=== PATIENT | female | born 1960 | race Caucasian/White ===

== ENCOUNTER 2019-12-28 07:37 | Outpatient (REF) | payer BC, SELFPAY ==
--- NOTE | 2019-12-28 07:42 | MM_ITS ---
EXAMINATION: MM SCREENING DIGITAL BREAST TOMOSYNTHESIS, BILATERAL CLINICAL INFORMATION: Screening. Asymptomatic. The lifetime risk of breast cancer based on the Tyrer-Cuzick Model is 11%. COMPARISON: Mammography: 12/22/2018, 11/09/2017, 10/17/2016 TECHNIQUE: Digital breast tomosynthesis is performed in both the craniocaudal and mediolateral oblique views along with computer-aided detection (CAD). Synthesized 2D images are generated from the tomosynthesis. FINDINGS: There are scattered areas of fibroglandular density (ACR BI-RADS breast composition Category b). There are no significant masses, abnormal calcifications, or other abnormalities. Parenchymal pattern is similar to prior studies. No developing density. The axilla are unremarkable. MM/MM tomosynthesis screening BI IMPRESSION: No significant changes from prior studies. ASSESSMENT: BI-RADS 1: Negative RECOMMENDATION: Routine annual mammography screening. This patient's information was entered into a reminder system with a target due date for their next mammogram.
== END 2019-12-28 07:38 | disposition home or self-care (01) ==
LOC: HO.MAMMO 07:37
PROVIDERS: PCP Pediatrics; Visit Provider Pediatrics
DX: Z12.31 Encounter for screening mammogram for malignant neoplasm of breast (principal)
CPT/HCPCS: 77063; 77067

== ENCOUNTER 2021-02-17 12:04 | Outpatient (REF) | payer OTHER, SELFPAY ==
--- NOTE | ~2021-02-17 | MM_ITS ---
EXAMINATION: MM SCREENING DIGITAL BREAST TOMOSYNTHESIS, BILATERAL CLINICAL INFORMATION: Screening. Asymptomatic. The lifetime risk of breast cancer based on the Tyrer-Cuzick Model is 7%. COMPARISON: Mammography: 12/28/2019, 12/22/2018, 11/09/2017 TECHNIQUE: Digital breast tomosynthesis is performed in both the craniocaudal and mediolateral oblique views along with computer-aided detection (CAD). Synthesized 2D images are generated from the tomosynthesis. FINDINGS: There are scattered areas of fibroglandular density (ACR BI-RADS breast composition Category b). There are no significant masses, abnormal calcifications, or other abnormalities. Bilateral low lying axillary tail nodes are again present. There is a stable small oval nodule central outer right breast. No developing density or architectural abnormality. The skin contours are smooth. No significant changes. MM/MM tomosynthesis screening BI IMPRESSION: No mammographic evidence of malignancy. ASSESSMENT: BI-RADS 2: Benign RECOMMENDATION: Routine annual mammography screening. This patient's information was entered into a reminder system with a target due date for their next mammogram.
== END 2021-02-17 12:05 | disposition home or self-care (01) ==
LOC: HO.MAMMO 12:04
PROVIDERS: Visit Provider Pediatrics
DX: Z12.31 Encounter for screening mammogram for malignant neoplasm of breast (principal)
CPT/HCPCS: 77063; 77067

== ENCOUNTER 2022-02-20 08:22 | Outpatient (REF) | payer OTHER, SELFPAY ==
--- NOTE | ~2022-02-20 | MM_ITS ---
EXAMINATION: MM SCREENING DIGITAL BREAST TOMOSYNTHESIS, BILATERAL CLINICAL INFORMATION: Screening. Asymptomatic. The lifetime risk of breast cancer based on the Tyrer-Cuzick Model is 9%. COMPARISON: Mammography: 02/17/2021, 12/28/2019, 12/22/2018 TECHNIQUE: Digital breast tomosynthesis is performed in both the craniocaudal and mediolateral oblique views along with computer-aided detection (CAD). Synthesized 2D images are generated from the tomosynthesis. FINDINGS: There are scattered areas of fibroglandular density (ACR BI-RADS breast composition Category b). There are no significant masses, abnormal calcifications, or other abnormalities. Parenchymal pattern is similar to prior studies. There is no developing density or architectural abnormality. The axilla and skin contours are unremarkable. No significant changes. MM/MM tomosynthesis screening BI IMPRESSION: No mammographic evidence of malignancy. ASSESSMENT: BI-RADS 1: Negative RECOMMENDATION: Routine annual mammography screening. This patient's information was entered into a reminder system with a target due date for their next mammogram.
== END 2022-02-20 08:23 | disposition home or self-care (01) ==
LOC: HO.MAMMO 08:22
PROVIDERS: PCP Nurse Practitioner Family; Visit Provider Nurse Practitioner Family
DX: Z12.31 Encounter for screening mammogram for malignant neoplasm of breast (principal)
CPT/HCPCS: 77063; 77067

== ENCOUNTER 2023-02-26 08:19 | Outpatient (REF) | payer BC, SELFPAY | END 2023-02-26 08:20 | disposition home or self-care (01) | LOC: HO.MAMMO 08:19 | PROVIDERS: PCP Nurse Practitioner Family; Visit Provider Nurse Practitioner Family | DX: Z12.31 Encounter for screening mammogram for malignant neoplasm of breast (principal) | CPT/HCPCS: 77063; 77067 ==

== ENCOUNTER → 2023-02-26 08:30 | Outpatient (BNV) | payer BC, SELFPAY | PROVIDERS: PCP Nurse Practitioner Family; Visit Provider Radiology Diagnostic Radiology | DX: Z12.31 Encounter for screening mammogram for malignant neoplasm of breast (principal) | CPT/HCPCS: 77063; 77067 ==

== ENCOUNTER 2024-03-17 10:01 | Outpatient (REF) | payer BC, SELFPAY | END 2024-03-17 10:02 | disposition home or self-care (01) | LOC: HO.MAMMO 10:01 | PROVIDERS: PCP Internal Medicine; Visit Provider Nurse Practitioner Family | DX: Z12.31 Encounter for screening mammogram for malignant neoplasm of breast (principal) ==

== ENCOUNTER → 2024-03-17 10:15 | Outpatient (BNV) | payer BC, SELFPAY | PROVIDERS: PCP Internal Medicine; Visit Provider Internal Medicine | DX: Z12.31 Encounter for screening mammogram for malignant neoplasm of breast (principal) | CPT/HCPCS: 77063; 77067 ==

== ENCOUNTER 2024-05-18 10:19 | Outpatient (AMB) | payer BC, SELFPAY ==
--- NOTE | 2024-05-18 10:41 | A.OFFPC_ITS ---
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 Allergies nitrofurantoin Allergy (Verified 05/18/24 10:45) Rash Medication List - Last Reconciled 05/18/24 by EROS Christina bimatoprost 0.01% (Lumigan) 1 drp ophthalmic (eye) DAILY dorzolamide-timolol 22.3-6.8 mg/mL (Cosopt) 1 drp ophthalmic (eye) BID Tobacco use date assessed: 05/18/24 Dental Screening Dental Screen Date: 05/18/24 Did you have a dental visit in the last 12 months?: Yes Did you have a dental problem in the last 6 months where you did not have access to dental care?: No HPI HPI Comments History of Present Illness Details This is a 63-year-old female with a past medical history of hyp othyroidism presenting to establish care. She sees an eye doctor regularly due to glaucoma. She is on drops. She has mammograms done at [facility]. This is up-to-date. History of hypothyroidism-Not currently on meds. She declines referral for gynecologic exam. Bone density exam ordered. She declines colonoscopy. No family history of colon cancer. She has never had a colonoscopy. Agreeable to Cologuard which is ordered. Patient says she is not interested in vaccinations. We discussed them including Prevnar vaccine. She will think about it. She can get it at the pharmacy if she wants to proceed. Patient says cholesterol has been borderline elevated in the past. She has a family history of cardiovascular disease. She denies chest pain, shortness of breath or decreased exercise tolerance. We discussed low-dose CAT scan, and she is going to think about it and check with her insurance company and let me know if she wants me to order it. Patient traveling to [facility] and [facility]. Travel agency said she does not have to get malaria vaccine because it is above the malaria line. ROS: Constitutional: No unexplained weight loss, fever, chills, fatigue or night sweats. Eyes: No vision changes, blurry vision, double vision, eye pain, eye redness, eye discharge. ENT: No hearing loss, sneezing, congestion, runny nose or sore throat. Respiratory: No shortness of breath, cough or sputum production. Cardiovascular: No chest pain, chest pressure or chest discomfort. No palpitations or pedal edema. Gastrointestinal: No anorexia, nausea, vomiting or diarrhea. No abdominal pain or blood in stool. Genitourinary: No dysuria, hematuria, urinary frequency. Neurologic: No headache, dizziness, syncope, unilateral weakness, ataxia, numbness or tingling in the extremities. Musculoskeletal: No muscle pain, back pain, joint pain or swelling. Hematologic/Lymphatics: No bleeding or bruising. No painful lymph nodes. Skin: No rash or itching. Endocrine: No cold or heat intolerance. No polyuria or polydipsia. Psychiatric: No depression or anxiety. No SI/HI. Physical exam: Constitutional: Alert, in no distress. Head: Normocephalic. Eyes: Pupils are equal, round and reactive to light. Extraocular muscles intact. Ear, Nose and Throat: Canals clear. TMs normal. Normal nasal mucosa. No nasal discharge. No oral lesions. Neck: Supple, Full range of motion. No lymphadenopathy. No palpable thyroid masses. Respiratory: Clear to auscultation. Cardiovascular: S1 S2 regular. No murmurs. No carotid bruits. Gastrointestinal: Abdomen soft, non-tender, non-distended. Normal bowel sounds. No palpable masses. Neurologic: No focal neurological deficits. Symmetric patellar reflexes. Moves all extremities spontaneously. Sensation intact bilaterally. Skin: No rashes or lesions. Musculoskeletal: No gross deformities. Normal range of motion. Extremities: Warm and well perfused. No clubbing, cyanosis or edema. 3+ peripheral pulses bilaterally. Psychiatric: Normal mood and affect [facility] Medical History (Updated 05/18/24 @ 13:49 by EROS Christina) Glaucoma Routine physical examination Screening for cardiovascular condition Hypothyroidism Family History (Updated 05/18/24 @ 10:55 by Ada Boyd MA) Father Stroke Maternal Grandmother Breast cancer Brother Cardiovascular disease Other High cholesterol Hypertension Social History (Updated 05/18/24 @ 10:48 by Ada Boyd MA) Housing: House Alcohol intake: current Comment: Social Patient Tobacco Use Status: Never used Tobacco e-Cigarette/Vaping Use: Never Used Second Hand Smoke Exposure: No service: No Current occupational status: employed Current occupational exposures/hazards: No Cognitive needs: No Hearing needs: No Vision needs: No Questionnaire PHQ-9 Over the last 2 weeks, how often have you been bothered by any of the following problems? 1. Little interest or pleasure in doing things: not at all 2. Feeling down, depressed, or hopeless: not at all 3. Trouble falling or staying asleep, or sleeping too much: several days 4. Feeling tired or having little energy: not at all 5. Poor appetite or overeating: not at all 6. Feeling bad about yourself - or that you are a failure or have let yourself or your family down: not at all 7. Trouble concentrating on things, such as reading the newspaper or watching television: not at all 8. Moving or speaking so slowly that other people could have noticed. Or the opposite - being so fidgety or restless that you have been moving around a lot more than usual: not at all 9. Thoughts that you would be better off or of hurting yourself in some way: not at all Total score: 1 Depression Screening Interpretation: Negative Depression Screening Done: Yes 70500 - PHQ-9 Billing: Patient declined-do not bill Source: Developed by Drs. Ernesto Duong, Roopa Feldman, Adolfo Agustin and colleagues, with an educational edilson from [employer]. Thrive Questionnaire Date Thrive assessed: 05/18/24 I am a: Patient What is your living situation today?: I have a steady place to live Within the past 12 months, did the food you bought not last and you didn't have the money to get more?: Never true Within the past 12 months, did you worry whether your food would run out before you got money to buy more?: Never true Do you have trouble paying for medicines?: No Do you have trouble getting transportation to medical appointments?: No Do you have trouble paying your heating and electricity bill?: No Do you have trouble taking care of your child, family member or friend?: No Do you have trouble with day-to-day activities such as bathing, preparing meals, shopping, managing finances, etc.?: No Are you currently unemployed and looking for a job?: No Are you interested in more education?: No Please select the resources that you would like help with: None Currently or been in a relationship where the following occur: No concerns reported THRIVE Score: 0 AUDIT C Alcohol Use Questionnaire (AUDIT-C) 1. How often do you have a drink containing alcohol?: 2-3 times a week 2. How many drinks containing alcohol do you have on a typical day when you are drinking?: 1 or 2 3. How often do you have six or more drinks on one occasion?: Never Total Score: 3 Score Reviewed/Action Taken: No SIMRAN-7 AMB Questionnaire SIMRAN-7 Date SIMRAN - 7 assessed: 05/18/24 Feeling nervous, anxious, or on edge: 0 = Not at all Not being able to stop or control worryin = Not at all Worrying too much about different things: 0 = Not at all Trouble relaxin = Several days Being so restless that it is hard to sit still: 0 = Not at all Becoming easily annoyed or irritable: 0 = Not at all Feeling afraid as if something awful might happen: 0 = Not at all Total SIMRAN-7 score (0-4 normal; 5-9 mild; 10-14 moderate; 15-21 severe): 1 Source: Developed by Drs. Ernesto Duong, Roopa Feldman, Adlofo Agustin and colleagues, with an educational edilson from [employer]. SIMRAN-7 Assessment Billing SIMRAN-7 Assessment Tool: SIMRAN-7 Assessment 80131 Physical exam (Primary Care) Vital Signs: Last Vital Signs Pulse 65 05/18/24 10:49 BP 116/70 05/18/24 10:49 Pulse Ox 98 05/18/24 10:49 Oxygen Delivery Method Room Air 05/18/24 10:49 BMI result Body Mass Index 33.2 Tobacco/Smoking Status: Tobacco use Status Tobacco use date assessed 05/18/24 05/18/24 10:53 Patient Tobacco Use Status Never used Tobacco 05/18/24 10:53 e-Cigarette/Vaping Use Never Used 05/18/24 10:53 PHQ-9: PHQ-9 Score PHQ-9: Total score 1 05/18/24 10:53 Depression Screening Interpretation: Negative Thrive Assessment: Date of Thrive Assessment Date Thrive assessed 05/18/24 05/18/24 10:53 Currently or been in a relationship where the following occur: No concerns reported Coding Level of Care Code New Pt Prev Care 40-64y(88622) Diagnoses Routine physical examination Z00.00 Screening for cardiovascular condition Z13.6 Hypothyroidism E03.9 Additional Codes SIMRAN-7 Assessment Billing - SIMRAN-7 Assessment Tool: SIMRAN-7 Assessment 67179 ([id number]) Assessment & Plan Assessment & Plan (1) Routine physical examination: Code(s): Z00.00 - Encounter for general adult medical examination without abnormal findings Category: Medical Plan: Patient is seen today for a routine physical. 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 - Screening for colon cancer - Blood pressure screening - Cholesterol screening - Osteoporosis prevention including calcium/vitamin D intake, weight bearing exercise & smoking cessation - Nutritional and exercise counseling - Counseling of injury prevention including fire prevention, smoke alarms and seat belt usage - Screening for depression - Education about skin cancer - Recommendations about immunizations - Recommendation of an eye exam - Screening for substance abuse (2) Screening for cardiovascular condition: Code(s): Z13.6 - Encounter for screening for cardiovascular disorders Category: Medical (3) Hypothyroidism: Code(s): E03.9 - Hypothyroidism, unspecified Category: Medical Plan: Check TSH. Plan CPE in 1 year. Orders: Orders Comprehensive Met. Panel Today E03.9 - Hypothyroidism, unspecified, Z00.00 - Encounter for general adult medical examination without abnormal findings, Z13.6 - Encounter for screening for cardiovascular disorders Lipid Panel Today E03.9 - Hypothyroidism, unspecified, E78.5 - Hyperlipidemia, unspecified, Z00.00 - Encounter for general adult medical examination without abnormal findings, Z13.6 - Encounter for screening for cardiovascular disorders TSH reflex Free T4 Today E03.9 - Hypothyroidism, unspecified, Z00.00 - Encounter for general adult medical examination without abnormal findings, Z13.6 - Encounter for screening for cardiovascular disorders Complete Blood Count no Diff Today E03.9 - Hypothyroidism, unspecified, Z00.00 - Encounter for general adult medical examination without abnormal findings, Z13.6 - Encounter for screening for cardiovascular disorders XR DEXA axial skeleton Today E28.39 - Other primary ovarian failure Referrals Cologuard Test Z12.11 - Encounter for screening for malignant neoplasm of colon, Z12.12 - Encounter for screening for malignant neoplasm of rectum Patient Instructions: Check with insurance about coverage for Coronary Artery Calcium Cat Scan. If you would like to have this test done please call or message me on the portal.
[2024-05-18 10:49] VITALS: BP 116/70; PULSE 65; O2SAT 98; BMI 33.2
--- OUTSIDE RECORDS SUMMARY | 2024-05-18 12:08 | XMS_ITS | Patient Health Record ---
Author Organization [facility] Address [address] [place] [address] Support Name Relationship Address Phone HORACIO ALEXIS Guarantor Unknown Reason For Referral No Information Problems Problem Type SNOMED Code ICD Code Onset Dates Problem Status W/U Status Risk Notes Problem Menopausal symptom (98834793) Symptomatic menopausal or female climacteric states (627.2) Active confirmed Major Problem Gynecological examination normal (753963809552429) Routine gynecological examination (V72.31) Active confirmed Major Problem Screening for malignant neoplasm of colon (125534781) Special screening for malignant neoplasms, colon (V76.51) Active confirmed Major Plan Of Treatment No Information Insurance Providers Payer Name Payer Address Payer Phone Subscriber Number Group Number Insured Name Patient Relationship to Insured Coverage Start Date Coverage End Date [employer] [place] [address] [place] [address] [phone] [id number] HORACIO ALEXIS Self - patient is the insured
--- OUTSIDE RECORDS SUMMARY | 2024-05-18 12:08 | XMS_ITS | Encounter Summary ---
Author Organization [employer] Address [address] [place] [address] [address] [place] [address] Care Team Providers Care Geosciences Associate Professor Name Role Phone Fariha Rivera Primary Care Provider [phone] Inactive/Transferred Primary Care Provider Unava ilable Encounter Details Date Type Department Care Team (Late st Contact Info) Description 03/25/2024 Orders Only [facility] Information Management [address] [place] [address] Fariha Rivera FNP [address] [place] [address] Social History Tobacco Use Types Packs/Day Years Used Date Smoking Tobacco: Former Cigarettes Smokeless Tobacco: Never Comments Unknown Sex and Gender Information Value Date Recorded Sex Assigned at Female 04/04/2022 12:41 PM EST Legal Sex Female 8:39 PM EDT Gender Identity Female 04/04/2022 12:41 PM EST Sexual Orientation Straight 04/04/2022 12 :41 PM EST Occupation Industry Job Start Date Job End Date 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, 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 [employer] Not on file Not on file Not on file documented as of this encounter Plan of Treatment Not on file documented as of this encounter Procedures Procedure Name Priority Date/Time Associated Diagnosis Comments MAMMO SCREENING TOMOSYNTHESIS BILATERAL Routine 03/17/2024 9:05 AM EST documented in this encounter Results * MAMMO SCREENING TOMOSYNTHESIS BILATERAL (03/17/2024 9:05 AM EST) Anatomical Region Laterality Modality Mammography Fariha KIRAN IMG BI PROCEDURES Final Result documented in this encounter Visit Diagnoses Not on filedocumented in this encounter Care Teams Geosciences Associate Professor Relationship Specialty Start Date End Date Fariha Rivera FNP [address] [place] [address] PCP - General Family Medicine 07/02/22 05/11/24 Inactive/Transferred PCP - General 05/12/24 05/12/24 documented as of this encounter
--- OUTSIDE RECORDS SUMMARY | 2024-05-18 12:08 | XMS_ITS | Clinical Summary ---
Author Organization [employer] Address [address] [facility] 7t [place] [address] Care Team Providers Care Assistant Hall Director Name Role Phone Unavailable Primary Care Provider Unavailabl e Allergies Active Allergy Reactions Criticality Noted Date Comments Nitrofurantoin 03/11/2022 Other reaction(s): Unknown Medications dorzolamide-felicitas olol (Cosopt) 22.3-6.8 MG/ML ophthalmic solution 3 Active naproxen (Naprosyn) 500 MG tablet TAKE 1 TABLET BY MOUTH WITH FOOD OR MIILK NEEDED EVERY 12 HOURS WITH FOOD 2 Active omega-3 (fish oil) 1200 MG capsule 1 capsule in the morning. Active multivitamin-ir ii-xtrrtvii-beq ic acid (Centrum Silver, geriatric,) tablet 1 tablet. Active Misc Natural Products (Osteo Bi-Flex Triple Strength) tablet as directed Orally Active Cholecalciferol (Vitamin D) 50 MCG (2000 UT) capsule 1 capsule in the morning. Active Ascorbic Acid (vitamin C) 1000 MG tablet 1 tablet in the morning. Active dorzolamide-felicitas olol (Cosopt) 22.3-6.8 MG/ML ophthalmic solution Administer 1 drop into both eyes 2 times daily. Active albuterol (ProAir HFA) 108 (90 Base) MCG/ACT inhaler Inhale 2 puffs every 4 (four) hours if needed for wheezing or shortness of breath. 8.5 g 3 Active Active Problems Problem Noted Date Diagnosed Date Abnormal TSH 04/08/2022 Overview (04/08/2022): 10/02/21 TSH 3.11 Previously on Levothyroxine, off x 1.5 years. Will repeat TSH today. Assessment & Plan (04/08/2022 8:37 AM EST): 10/02/21 TSH 3.11 Previously on Levothyroxine, off x 1.5 years. Will repeat TSH today. Insomnia associated with menopause 04/08/2022 Assessment & Plan (04/08/2022 8:34 AM EST): Taking OTC Unisom PRN. Reviewed sleep hygiene. Will continue to discuss. Low-tension glaucoma of right eye 04/08/2022 Overweight 04/08/2022 Assessment & Plan (04/08/2022 8:38 AM EST): Stopped daily Diet Coke since 02/10/22! Working with trucking manager on diet plan/lifestyle modifications. Once diet managed, plans to start exercise program. Supported in this plan. Abdominal discomfort 04/08/2022 Assessment & Plan (04/08/2022 8:35 AM EST): Likely residual from previous viral illness. Discussed supportive care. Advised to call clinic if S/S fail to resolve or worsen in any way. Encounters Date Type Department Care Team Description 03/25/2024 Orders Only [facility] Information Management [address] [place], [place] [id number] Fariha Rivera FNP from Last 3 Months Immunizations Name Administration Dates Next Due Influenza, IIV3, injectable 11/18/2018, 6 Tdap 08/28/2018,05/05/2010 Family History Medical History Relation Name Comments Arrhythmia Brother pacemaker Brother Seizures Father Stroke Father age 82, stoke at age 70 Marlo Parkinson White syndrome Mother at age 87 Hypertension Son Relation Name Status Comments Brother bleeding ulcer Father Father: d, Stroke at age 70 age 82 - stopped taking seizure medication, had seizure Mother Son age 32 Social History Tobacco Use Types Packs/Day Years Used Date Smoking Tobacco: Former Cigarettes Smokeless Tobacco: Never Tobacco Cessation:Counseling Given: Not Answered Comments Unknown Sex and Gender Information Value Date Recorded Sex Assigned at Female 04/04/2022 12:41 PM EST Legal Sex Female 8:39 PM EDT Gender Identity Female 04/04/2022 12:41 PM EST Sexual Orientation Straight 04/04/2022 12 :41 PM EST Occupation Industry Job Start Date Job End Date 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, 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 Not on file Not on file Last Filed Vital Signs Vital Sign Reading Time Taken Comments Blood Pressure 116/80 04/08/2022 8:23 AM EST Pulse 51 04/08/2022 8:23 AM EST Temperature 36.3 ??C (97.3 ??F) 04/08/2022 8:23 AM ES T Respiratory Rate 16 04/08/2022 8:23 AM EST Oxygen Saturation 99% 09/05/2021 12:00 PM EDT Inhaled Oxygen Concentration - - Weight 83.9 kg (185 lb) 04/08/2022 8:23 AM EST Height 162.6 cm (5' 4 ) 10/10/2021 8:00 AM EDT Body Mass Index 31.76 10/10/2021 8:00 AM EDT Plan of Treatment Health Maintenance Due Date Last Done Comments CT Colonography 1960 Colonoscopy 1960 Colorectal Cancer Screening 1960 Depression Screening 1960 FIT DNA/Cologuard 1960 FIT 1960 FOBT 1960 SDOH Screening 1960 Sigmoidoscopy 1960 Alcohol/Substance Use Screening 1972 Pap Smear 1981 Cervical Cancer Screening 1990 HPV/Cotest 1990 Mammogram 2000 Pneumococcal Vaccine: 50+ Years (1 of 1 - PCV) 2010 Zoster Vaccines (1 of 2) 2010 Tobacco Screening 04/09/2023 04/08/2022 COVID-19 Vaccine ( - season) 2023 Influenza Vaccine (#1) 2023 9, 11/18/2018, 11/06/2015, Additional history exists DTaP/Tdap/Td Vaccines (4 - Td or Tdap) 08/28/2028 08/28/2018, 07/29/2018, 05/05/2010 RSV Patients and Patients Aged 60 years or older (1 - 1-dose 75+ series) 11/06/2035 HIV Screening Completed 10/02/2021, 10/02/2021 Hepatitis C Screening Completed 10/02/2021, 022 HIB Vaccines Aged Out No longer eligi ble based on patient's age to complete this topic HPV Vaccines Aged Out No longer eligi ble based on patient's age to complete this topic Hepatitis A Vaccines Aged Out No long er eligible based on patient's age to complete this topic Hepatitis B Vaccines Aged Out No long er eligible based on patient's age to complete this topic IPV Vaccines Aged Out No longer eligi ble based on patient's age to complete this topic Meningococcal Vaccine Aged Out No nora gilberto eligible based on patient's age to complete this topic RSV under 20 months Aged Out No longe r eligible based on patient's age to complete this topic Rotavirus Vaccines Aged Out No longer eligible based on patient's age to complete this topic Procedures Procedure Name Priority Date/Time Associated Diagnosis Comments MAMMO SCREENING TOMOSYNTHESIS BILATERAL Routine 03/17/2024 9:05 AM EST ZZZ HISTORICAL HEPATITIS C ANTIBODY TEST Routine 10/02/2021 8:33 AM EDT HIV-1 ANTIBODY, EIA Routine 10/02/2021 from Last 3 Months or Most Recently Relevant to Health Maintenance Results * MAMMO SCREENING TOMOSYNTHESIS BILATERAL (03/17/2024 9:05 AM EST) Anatomical Region Laterality Modality Mammography us Fariha KIRAN IMG BI PROCEDURES Final Result * -Hepatitis C Antibody Test (10/02/2021 8:33 AM EDT) ANTI-HEPATITIS C NEGATIVE (NEG) [facility] Comment: Reference range: Negative This test was performed on the [employer] immunoassay system. 10/02/2021 8:33 AM EDT us Fariha KIRAN HISTORICAL/NON ORDERABLE LABS Fi nal Result [facility] [address] * HIV-1 antibody, EIA (10/02/2021) External HIV-1 Antibody Negative Blood Venous blood specimen / Unknown Historical Provider LAB BLOOD ORDERABLES Heidi l Result from Last 3 Months or Most Recently Relevant to Health Maintenance Insurance * Guarantor: Kenia Ervin Account Type Relation to Patient Date of Phone Billing Address Personal/Family Self [address] [place]
== END 2024-05-18 11:22 | disposition home or self-care (01) ==
LOC: HO.HMCFM 10:19
PROVIDERS: PCP Physician Assistant Medical; Visit Provider Physician Assistant Medical
DX: Z00.00 Encounter for general adult medical examination without abnormal findings (principal); Z13.6 Encounter for screening for cardiovascular disorders; E03.9 Hypothyroidism, unspecified

== ENCOUNTER → 2024-05-18 10:19 | Outpatient (BNVA) | payer BC, SELFPAY | PROVIDERS: PCP Physician Assistant Medical; Visit Provider Physician Assistant Medical | DX: Z00.00 Encounter for general adult medical examination without abnormal findings (principal); E03.9 Hypothyroidism, unspecified | CPT/HCPCS: 96127 ==

== ENCOUNTER 2024-06-09 08:11 | Outpatient (REF) | payer BC, SELFPAY ==
--- OUTSIDE RECORDS SUMMARY | 2024-06-09 08:19 | XMS_ITS | Patient Health Record ---
Author Organization [facility] Address [address] [facility] [address] [place] [address] Support Name Relationship Address Phone VANESAKANDYHORACIO Guarantor Unknown [phone] Reason For Referral No Information Problems Problem Type SNOMED Code ICD Code Onset Dates Problem Status W/U Status Risk Notes Problem Menopausal symptom (90936516) Symptomatic menopausal or female climacteric states (627.2) Active confirmed Major Problem Gynecological examination normal (692076439244833) Routine gynecological examination (V72.31) Active confirmed Major Problem Special screenin g for malignant neoplasms, colon (V76.51) Active confirmed Major Plan Of Treatment No Information Insurance Providers Payer Name Payer Address Payer Phone Subscriber Number Group Number Insured Name Patient Relationship to Insured Coverage Start Date Coverage End Date BC[employer] OF [place] [address] [place] [address] [phone] [id number] 00 HORACIO ALEXIS Self - patient is the insured
--- OUTSIDE RECORDS SUMMARY | 2024-06-09 08:20 | XMS_ITS | Clinical Summary ---
Author Organization [employer] Address [address] [facility] 7t [place] [address] Care Team Providers Care Tanker Serviceman Name Role Phone Unavailable Primary Care Provider [...] 1 capsule in the morning. Active multivitamin-ir pg-cgclmpwh-lkk ic acid (Centrum Silver, geriatric,) tablet 1 [...] daily Diet Coke since 02/10/22! Working with equipment inspector on diet plan/lifestyle modifications. Once diet managed, plans to start exercise program. Supported in this plan. Abdominal discomfort 04/08/2022 Assessment & Plan (04/08/2022 8:35 AM EST): Likely residual from previous viral illness. Discussed supportive care. Advised to call clinic if S/S fail to resolve or worsen in any way. 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 10/02/2021 8:33 AM EDT us Fariha KIRAN HISTORICAL/NON ORDERABLE LABS Fi nal Result [facility] [address] * HIV-1 antibody, EIA (10/02/2021) External HIV-1 Antibody Negative Blood Venous blood specimen / Unknown Historical Provider LAB BLOOD ORDERABLES Heidi l Result from Last 3 Months or Most Recently Relevant to Health Maintenance Insurance * Guarantor: Kenia Ervin Account Type Relation to Patient Date of Phone Billing Address Personal/Family Self [address] [place]
--- OUTSIDE RECORDS SUMMARY | 2024-06-09 08:20 | XMS_ITS | Encounter Summary ---
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
[2024-06-09 11:20] LABS: Hematocrit 41.6 % (37.0-47.0); Hemoglobin 13.6 g/dl (12.0-16.0); Mean Corpuscular HGB Conc 32.7 g/dl (31.0-35.0); Mean Corpuscular Hemoglobin 31.1 pg (27.0-33.0); Mean Platelet Volume 11.1 fL (9.4-12.3); Platelet Count 260 X10*3/uL (160-400); Red Blood Count 4.38 X10*6/uL (4.20-5.50); Red Cell Distribution Width 12.7 % (11.0-16.0); White Blood Count 4.8 X10*3/uL (4.8-10.8)
[2024-06-09 11:48] LABS: Alanine Aminotransferase 24 U/L (0-31); Albumin Level 4.3 g/dL (3.5-5.0); Alkaline Phosphatase 64 U/L (39-117); Anion Gap 9 (12-20); Aspartate Amino Transferase 24 U/L (5-31); Bilirubin Total 0.5 mg/dL (0.0-1.0); Blood Urea Nitrogen 20 mg/dL (9-16); Calcium 9.3 mg/dL (8.4-10.2); Carbon Dioxide 30 mmol/L (22-29); Chloride 107 mmol/L (96-108); Cholesterol 231 mg/dL (<200); Estimated Glomerular Filt Rate > 60; Glucose Random 89 mg/dL (60-115); HDL Cholesterol 77 mg/dL (>40); LDL Cholesterol Calculated 136 mg/dL (<100); Potassium 4.1 mmol/L (3.3-5.1); Sodium 142 mmol/L (135-145); Total Protein 7.3 g/dL (6.5-8.0); Triglycerides 90 mg/dL (<150)
[2024-06-09 12:06] LABS: TSH reflex Free T4 2.29 uIU/mL (0.32-4.0)
== END 2024-06-09 08:12 | disposition home or self-care (01) ==
LOC: HO.WFDLDS 08:11
PROVIDERS: Visit Provider Physician Assistant Medical
DX: Z00.00 Encounter for general adult medical examination without abnormal findings (principal); Z13.6 Encounter for screening for cardiovascular disorders; E03.9 Hypothyroidism, unspecified; E78.5 Hyperlipidemia, unspecified
CPT/HCPCS: 36415; 80053; 80061; 84443; 85027

== ENCOUNTER 2024-06-16 08:34 | Outpatient (REF) | payer BC, SELFPAY ==
--- NOTE | ~2024-06-16 | MM_ITS ---
EXAMINATION: DXA BONE DENSITY AXIAL HISTORY: E28.39 - Other primary ovarian failure TECHNIQUE: HELIX BIOMEDIX Dual energy absorptiometry (DEXA) of the lumbar spine, total left hip, and femoral neck was performed. COMPARISON: Comparison is made with the prior examination dated 12/15/2012. FINDINGS: The bone mineral density of the lumbar spine is 1.217 with a T-score of 0.3, and a Z-score of 1.6. This is indicative of normal bone mineral density.- This represents a BMD change of 3.3% compared to the prior exam. This is statistically significant. The bone mineral density of the left total hip is 1.057 with a T-score of 0.4, and a Z-score of 1.3. This is indicative of normal bone mineral density. This represents a BMD change of -1.9% compared to the prior exam. This is not statistically significant. The bone mineral density of the left femoral neck is 0.962 with a T-score of -0.5, and a Z-score of 0.7. This is indicative of normal bone mineral density. This represents a BMD change of -5.0% compared to the prior exam. MM/XR DEXA axial skeleton IMPRESSION: Based on bone mineral density, and according to World Health Organization (WHO) criteria, the diagnosis is consistent with normal bone mineral density. All bone density values are in grams per centimeter squared (g/cm2). Statistically, 68% of repeat scans fall within 1 SD (+/- 0.010 g/cm2 for AP spine L1-L4) and 1 SD (+/- 0.012 g/cm2 for femur total) FRAX is a trademark of the [employer]'s [place] for Metabolic Bone Disease, a World Health Organization (WHO) Collaborating Center. Electronically signed by: Ernesto Amos MD 06/16/2024 09:11 AM EDT
--- OUTSIDE RECORDS SUMMARY | 2024-06-16 08:48 | XMS_ITS | Encounter Summary ---
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
--- OUTSIDE RECORDS SUMMARY | 2024-06-16 08:48 | XMS_ITS | Clinical Summary ---
Author Organization [employer] Address [address] [facility] 7t [place] [address] Care Team Providers Care Rod Puller And Coiler Name Role Phone Unavailable Primary Care Provider [...] 1 capsule in the morning. Active multivitamin-ir ez-lusqdnwh-qvi ic acid (Centrum Silver, geriatric,) tablet 1 [...] daily Diet Coke since 02/10/22! Working with logistics engineering manager on diet plan/lifestyle modifications. Once diet managed, plans to start exercise program. Supported in this plan. Abdominal discomfort 04/08/2022 Assessment & Plan (04/08/2022 8:35 AM EST): Likely residual from previous viral illness. Discussed supportive care. Advised to call clinic if S/S fail to resolve or worsen in any way. 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 10/02/2021 8:33 AM EDT us Fariha Rivera METAL CONTROL WORKER HISTORICAL/NON ORDERABLE LABS Fi nal Result [facility] [address] * HIV-1 antibody, EIA (10/02/2021) External HIV-1 Antibody Negative Blood Venous blood specimen / Unknown us Historical Provider LAB BLOOD ORDERABLES Heidi l Result from Last 3 Months or Most Recently Relevant to Health Maintenance Insurance * Guarantor: Kenia Ervin Account Type Relation to Patient Date of Phone Billing Address Personal/Family Self [address] [place]
--- OUTSIDE RECORDS SUMMARY | 2024-06-16 08:48 | XMS_ITS | Patient Health Record ---
Author Organization [facility] Address [address] [facility] [address] [place] [address] Support Name Relationship Address Phone HORACIO ALEXIS Guarantor Unknown [phone] Reason For Referral No Information Problems Problem Type SNOMED Code ICD Code Onset Dates Problem Status W/U Status Risk Notes Problem Menopausal symptom (81861690) Symptomatic menopausal or female climacteric states (627.2) Active confirmed Major Problem Gynecological examination normal (837757024544327) Routine gynecological examination (V72.31) Active confirmed Major Problem Screening for malignant neoplasm of colon (772408303) Special screening for malignant neoplasms, colon (V76.51) Active confirmed Major Plan Of Treatment No Information Insurance Providers Payer Name Payer Address Payer Phone Subscriber Number Group Number Insured Name Patient Relationship to Insured Coverage Start Date Coverage End Date BC[employer] OF [place] [address] [place] [address] [id number] VANESAKANDYHORACIO Self - patient is the insured
== END 2024-06-16 08:35 | disposition home or self-care (01) ==
LOC: HO.MAMMO 08:34
PROVIDERS: PCP Physician Assistant Medical; Visit Provider Physician Assistant Medical
DX: Z13.820 Encounter for screening for osteoporosis (principal); E28.39 Other primary ovarian failure
CPT/HCPCS: 77080

== ENCOUNTER → 2024-06-16 08:45 | Outpatient (BNV) | payer BC, SELFPAY | PROVIDERS: PCP Physician Assistant Medical; Visit Provider Radiology Diagnostic Radiology | DX: E28.39 Other primary ovarian failure (principal) | CPT/HCPCS: 77080 ==

== ENCOUNTER 2025-01-24 08:16 | Outpatient (REF) | payer BC, SELFPAY ==
--- NOTE | ~2025-01-24 | XR_ITS ---
EXAMINATION: XR CHEST 2 VIEWS HISTORY: R05.9 - Cough, unspecified COMPARISON: There are no prior studies available for comparison. FINDINGS: PA and lateral views of the chest are submitted. There is airspace opacity in the left lower lobe, compatible with pneumonia. The right lung is clear. There is no pleural effusion, pneumothorax, or pulmonary vascular congestion. The heart is normal in size. The bones are intact. XR/XR chest 2V IMPRESSION: Left lower lobe pneumonia. Follow-up is recommended to document resolution. Electronically signed by: Ernesto Amos MD 01/24/2025 08:35 AM EST
--- OUTSIDE RECORDS SUMMARY | 2025-01-24 08:22 | XMS_ITS | Clinical Summary ---
Author Organization [employer] Address [address] [facility] 7t [place] [address] Care Team Providers Care Llama Farmer Name Role Phone Unavailable Primary Care Provider [...] 1 capsule in the morning. Active multivitamin-ir ap-nqzjyfeh-vqq ic acid (Centrum Silver, geriatric,) tablet 1 [...] daily Diet Coke since 02/10/22! Working with [facility] nurse on diet plan/lifestyle modifications. Once diet managed, plans to start exercise program. Supported in this plan. Abdominal discomfort 04/08/2022 Assessment & Plan (04/08/2022 8:35 AM EST): Likely residual from previous viral illness. Discussed supportive care. Advised to call clinic if S/S fail to resolve or worsen in any way. 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 file Not on file Last Filed Vital Signs Vital Sign Reading Time Taken Comments Blood Pressure 116/80 04/08/2022 8:23 AM EST Pulse 51 04/08/2022 8:23 AM EST Temperature 36.3 C (97.3 F) 04/08/2022 8:23 AM EST Respiratory Rate 16 04/08/2022 8:23 AM EST [...] FOBT 1960 SDOH Screening 1960 Sigmoidoscopy 1960 Disability Screening 1960 Alcohol/Substance Use Screening 1972 Pap Smear 1981 Cervical Cancer Screening 1990 HPV/Cotest 1990 Pneumococcal Vaccine: 50+ Years (1 of 1 - PCV) 2010 Zoster Vaccines (1 of 2) 2010 Tobacco Screening 04/09/2023 04/08/2022 COVID-19 Vaccine ( - season) 2024 Influenza Vaccine (#1) 2024 9, 11/18/2018, 11/06/2015, Additional history exists Mammogram 03/17/2026 03/17/2024 DTaP/Tdap/Td Vaccines (4 - Td or Tdap) [...] patient's age to complete this topic Meningococcal B Vaccine Aged Out No l onger eligible based on patient's age to complete [...] Anatomical Region Laterality Modality Mammography us Fariha Rivera NP IMG BI PROCEDURES Final Result * -Hepatitis C Antibody Test (10/02/2021 8:33 AM EDT) ANTI-HEPATITIS C NEGATIVE (NEG) [facility] Comment: Reference range: Negative This test was performed on the [employer] / Chemistry Technician immunoassay system. 10/02/2021 8:33 AM EDT us Fariha Rivera NP HISTORICAL/NON ORDERABLE LABS Fi nal Result [facility] Any[facility] [address] * HIV-1 antibody, EIA (10/02/2021) External HIV-1 Antibody Negative Blood Venous blood specimen / Unknown us Historical Provider LAB BLOOD ORDERABLES Heidi waters Result from Last 3 Months or Most Recently Relevant to Health Maintenance Insurance [facility]
--- OUTSIDE RECORDS SUMMARY | 2025-01-24 08:22 | XMS_ITS | Encounter Summary ---
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 on file Not on file documented as of this encounter Plan of Treatment Not on file documented as of this encounter Procedures Procedure Name Priority Date/Time Associated Diagnosis Comments MAMMO SCREENING TOMOSYNTHESIS BILATERAL Routine 03/17/2024 9:05 AM EST documented in this encounter Results * MAMMO SCREENING TOMOSYNTHESIS BILATERAL (03/17/2024 9:05 AM EST) Anatomical Region Laterality Modality Mammography Fariha Rivera NP IMG BI PROCEDURES Final Result documented in this encounter Visit Diagnoses Not on filedocumented in this encounter Care Teams Miller Distillery Relationship Specialty Start Date End Date Fariha Rivera NP PCP - General Family Medicine 07/02/22 05/11/24 Inactive/Transferred PCP - General 05/12/24 05/12/24 documented as of this encounter
--- OUTSIDE RECORDS SUMMARY | 2025-01-24 08:22 | XMS_ITS | Patient Health Record ---
Author Organization [facility] Address [address] [facility] [address] [place] [address] Support Name Relationship Address Phone HORACIO ALEXIS Guarantor Unknown [phone] Reason For Referral No Information Problems Problem Type SNOMED Code ICD Code Onset Dates Problem Status W/U Status Risk Notes Problem Menopausal symptom (17446688) Symptomatic menopausal or female climacteric states (627.2) Active confirmed Major Problem Gynecological examination normal (371629876331953) Routine gynecological examination (V72.31) Active confirmed Major Problem Screening for malignant neoplasm of colon (427763128) Special screening for malignant neoplasms, colon (V76.51) Active confirmed Major Plan Of Treatment No Information Insurance Providers Payer Name Payer Address Payer Phone Subscriber Number Group Number Insured Name Patient Relationship to Insured Coverage Start Date Coverage End Date [employer] OF [place] [address] [place] [address] [id number] VANESAHORACIO Self - patient is the insured
--- OUTSIDE RECORDS SUMMARY | 2025-01-24 08:22 | XMS_ITS | Patient Health Record ---
Author Organization [facility] Address [address] [place] [address] Care Team Providers Care Jailkeeper Name Role Phone Ernesto Ch Unavailable [phone] Reason For Referral No Information Plan Of Treatment No Information
== END 2025-01-24 08:17 | disposition home or self-care (01) ==
LOC: HO.XRAY 08:16
PROVIDERS: PCP Physician Assistant Medical; Visit Provider Physician Assistant Medical
DX: R05.9 Cough, unspecified (principal)
CPT/HCPCS: 71046

== ENCOUNTER → 2025-01-24 08:21 | Outpatient (BNV) | payer BC, SELFPAY | PROVIDERS: PCP Physician Assistant Medical; Visit Provider Radiology Diagnostic Radiology | DX: J18.9 Pneumonia, unspecified organism (principal) | CPT/HCPCS: 71046 ==